=== PATIENT | female | born 1990 | race Caucasian/White ===

== ENCOUNTER 2017-11-17 20:09 | Emergency (ER) | payer OTHER ==
[2017-11-17] MEDS ORDERED: AFRIN ONE (20:29)
[2017-11-17] MEDS ORDERED: AFRIN NS ONE (20:45)
--- NOTE | 2017-11-18 01:45 | Emergency Department Report ---
ED ENT HPI - General Chief complaint: Nosebleed Stated complaint: NOSE BLEED Time Seen by Provider: 11/18/17 01:23 Source: patient Mode of arrival: Ambulatory Limitations: No Limitations - History of Present Illness Initial comments: 27-year-old female comes in for spontaneous nose bleed at the onset of about 6:30. Patient reports she's been sneezing no coughing or fever no chills no runny eyes and nasal congestion. Patient reports she's never had a nosebleed before. She does report rubbing her nose quite often. Patient has no past medical history currently takes no medication and has no known drug allergies. Patient denies any chest pain dizziness change of vision. MD complaint: epistaxis -: This afternoon Time: 18:30 Location: nose Severity scale (0 -10): 7 Improves with: none Worsens with: other (sneezing) - Related Data Allergies Allergy/AdvReac Type Severity Reaction Status Date / Time No Known Allergies Allergy Unverified 11/17/17 20:37 ED Dental HPI - General Chief complaint: Nosebleed Stated complaint: NOSE BLEED Time Seen by Provider: 11/18/17 01:23 Source: patient Mode of arrival: Ambulatory Limitations: No Limitations - Related Data Allergies Allergy/AdvReac Type Severity Reaction Status Date / Time No Known Allergies Allergy Unverified 11/17/17 20:37 ED Review of Systems ROS: Stated complaint: NOSE BLEED Other details as noted in HPI Constitutional: denies: chills, fever Eyes: denies: eye pain, eye discharge, vision change ENT: epistaxis (right nare). denies: ear pain, throat pain Respiratory: denies: cough, shortness of breath, wheezing Cardiovascular: denies: chest pain, palpitations Endocrine: no symptoms reported Gastrointestinal: denies: abdominal pain, nausea, diarrhea Genitourinary: denies: urgency, dysuria, discharge Musculoskeletal: denies: back pain, joint swelling, arthralgia Skin: denies: rash, lesions Neurological: denies: headache, weakness, paresthesias Psychiatric: denies: anxiety, depression Hematological/Lymphatic: denies: easy bleeding, easy bruising ED Past Medical Hx - Past Medical History Previous Medical History?: No - Surgical History Past Surgical History?: No - Social History Smoking Status: Never Smoker Substance Use Type: Alcohol ED Physical Exam - General Limitations: No Limitations General appearance: alert, in no apparent distress - Head Head exam: Present: atraumatic, normocephalic - Eye Eye exam: Present: normal appearance - ENT ENT exam: Present: other (active bleeding from right nare) - Neck Neck exam: Present: normal inspection - Respiratory Respiratory exam: Present: normal lung sounds bilaterally. Absent: respiratory distress - Cardiovascular Cardiovascular Exam: Present: regular rate, normal rhythm. Absent: systolic murmur, diastolic murmur, rubs, gallop - GI/Abdominal GI/Abdominal exam: Present: soft, normal bowel sounds - Extremities Exam Extremities exam: Present: normal inspection - Back Exam Back exam: Present: normal inspection - Neurological Exam Neurological exam: Present: alert, oriented X3 - Psychiatric Psychiatric exam: Present: normal affect, normal mood - Skin Skin exam: Present: warm, dry, intact, normal color. Absent: rash ED Course Vital Signs 11/17/17 20:34 Temperature 98.2 F Pulse Rate 105 H Respiratory 18 Rate Blood Pressure 139/91 O2 Sat by Pulse 99 Oximetry ED Medical Decision Making - Medical Decision Making Patient has been evaluated by this provider fast track. I had Dr. Hernandez , to place a Rhino rocket in right nare. Patient tolerated procedure well. Discussed the patient to continue with ice and to return tomorrow in 24 hours to have rocket removed. Patient verbalized understanding Critical care attestation.: If time is entered above; I have spent that time in minutes in the direct care of this critically ill patient, excluding procedure time. ED Disposition Clinical Impression: Epistaxis Disposition: DC-01 TO HOME OR SELFCARE Is pt being admited?: No Does the pt Need Aspirin: No Condition: Stable Instructions: Epistaxis (ED) Additional Instructions: Please return in 24 hours to have nasal packing removed. Referrals: DENNY CHAVEZ MD [Primary Care Provider] - 3-5 Days Forms: Work/School Release Form(ED), Accompanied Note
[2017-11-18 07:01] VITALS: BP 134/87
== END 2017-11-18 01:50 | disposition home or self-care (01) ==
LOC: ED 20:09
DX: R04.0 Epistaxis (principal)

== ENCOUNTER 2017-11-19 01:54 | Emergency (ER) | payer OTHER ==
[2017-11-19 02:21] VITALS: BP 129/92
[2017-11-19] MEDS ORDERED: TYLENOL PO ONE (02:22)
[2017-11-19] MEDS ORDERED: TYLENOL ONE (02:23)
--- NOTE | 2017-11-19 02:40 | Emergency Department Report ---
ED General Adult HPI - General Chief complaint: Laceration/Recheck/Suture Stated complaint: REMOVAL OF EPISTAXIS Time Seen by Provider: 11/19/17 02:35 Source: patient Mode of arrival: Ambulatory Limitations: No Limitations - History of Present Illness Initial comments: 27-year-old female returns to the emergency room to have nasal packing removed. Patient admits to a headache and mild facial swelling. Patient denies any bleeding since packing is in place. Severity scale (0 -10): 6 - Related Data Allergies Allergy/AdvReac Type Severity Reaction Status Date / Time No Known Allergies Allergy Unverified 11/17/17 20:37 ED Review of Systems ROS: Stated complaint: REMOVAL OF EPISTAXIS Other details as noted in HPI Constitutional: denies: chills, fever Eyes: denies: eye pain, eye discharge, vision change ENT: other (facial swelling) Respiratory: denies: cough, shortness of breath, wheezing Cardiovascular: denies: chest pain, palpitations Endocrine: no symptoms reported Gastrointestinal: denies: abdominal pain, nausea, diarrhea Genitourinary: denies: urgency, dysuria, discharge Musculoskeletal: denies: back pain, joint swelling, arthralgia Skin: denies: rash, lesions Neurological: headache Psychiatric: denies: anxiety, depression Hematological/Lymphatic: denies: easy bleeding, easy bruising ED Past Medical Hx - Past Medical History Previous Medical History?: No - Surgical History Past Surgical History?: No - Social History Smoking Status: Former Smoker Substance Use Type: None ED Physical Exam - General Limitations: No Limitations - Head Head exam: Present: atraumatic, normocephalic, other - Eye Eye exam: Present: normal appearance - ENT ENT exam: Present: mucous membranes moist, other (right side facial swelling, right near nasal packing intact without bleeding) - Respiratory Respiratory exam: Present: normal lung sounds bilaterally. Absent: respiratory distress - Cardiovascular Cardiovascular Exam: Present: regular rate, normal rhythm. Absent: systolic murmur, diastolic murmur, rubs, gallop - Extremities Exam Extremities exam: Present: normal inspection - Back Exam Back exam: Present: normal inspection - Neurological Exam Neurological exam: Present: alert, oriented X3 - Psychiatric Psychiatric exam: Present: normal affect, normal mood - Skin Skin exam: Present: warm, dry, intact, normal color. Absent: rash ED Course Vital Signs 11/19/17 11/19/17 02:16 02:26 Temperature 98.9 F Pulse Rate 99 H Respiratory 18 Rate Blood Pressure 129/92 O2 Sat by Pulse 100 Oximetry ED Medical Decision Making - Medical Decision Making Patient has been evaluated by this provider fast track. Patient was given Tylenol 650 mg in triage. This provider remove nasal packing from right near the very very minimal bleeding. Discussed patient if she has a reoccurrence of a nosebleed that she needs to follow up with her manager [employer]. Continue to apply ice and pressure. If she is not able to control the bleeding to return back to the emergency room. Patient verbalized understanding. Critical care attestation.: If time is entered above; I have spent that time in minutes in the direct care of this critically ill patient, excluding procedure time. ED Disposition Clinical Impression: Epistaxis Disposition: DC-01 TO HOME OR SELFCARE Is pt being admited?: No Does the pt Need Aspirin: No Condition: Stable Instructions: Epistaxis (ED) Additional Instructions: Please follow up with ear nose and throat provider for further evaluation. If ear nose starts to bleed and not able to control bleeding please return back to the emergency room for evaluation and treatment. Referrals: OLIVIA CARLOS MD [Staff Physician] - 3-5 Days STEPH NICOLE MD [Staff Physician] - 3-5 Days HARINDER OLIVER MD [Staff Physician] - 3-5 Days ARIANE CHRISTINE MD [Staff Physician] - 3-5 Days Forms: Work/School Release Form(ED), Accompanied Note
== END 2017-11-19 02:57 | disposition home or self-care (01) ==
LOC: ED 01:54
DX: R04.0 Epistaxis (principal); Z87.891 Personal history of nicotine dependence
CPT/HCPCS: 99282